=== PATIENT | female | born 1935 | race Caucasian/White ===

== ENCOUNTER → 2016-12-23 | Outpatient (CLI) | payer MEDICARE, BC ==
[~2016-12-23] MED LIST: ACETAMINOPHEN PO; ALBUTEROL17 GM INH; ASPIRIN PO; ASPIRIN81 M2 PO; ASPIRIN81 MG PO; BACTRIM DS TABL1 TA1 PO; CALCIUM + D 6001 TA1 PO; CALCIUM + D PO; CERTAGEN PO; CRESTOR PO; DIOVAN HCT 160/1 TAB PO; DOXYCYCLINE HY100 M1 PO; ELIQUIS5 MG PO; FISH OIL 1,0001 CAP PO; FISH OIL 1,2001 CAP PO; FISH OIL 1,2001 EAC5 PO; FLONASE 0.05% N16 G1 IH; LEVOTHROID25 MCG PO; LEVOXYL125 MC1 PO; LORTAB 7.5-5001 TAB PO; MACULAR PROTECT; MACULAR VITAMI1 EACH PO; METOPROLOL TAR25 MG PO; OMEGA 3-6-9 11200 M1 PO; OSTEO BI FLEX PO; SIMVASTATIN20 MG PO; SYNTHROID; SYNTHROID PO; VALSARTAN-HCTZ1 EAC1 PO; VALSARTAN-HCTZ1 EAC3 PO; VITAMIN B 6 PO; ZITHROMAX PO; [UNRECOGNIZED DRUG - OTHER]; [UNRECOGNIZED DRUG - REMARK]
--- NOTE | ~2016-12-23 | US37 ---
[facility] A Service of [facility] & [facility] RADIOLOGY TEXT RESULTS PATIENT: CHAYITO BADILLO LOCATION: [facility] : 37 UNIT #: [id number] AGE: [address]: Roderick Andres MD SEX: F ORDER DR: [id number] [facility] [address] [place], [place] [address] [id number] O MR#: [id number] Acc #: [id number] NAME: CHAYITO BADILLO : 1935 SEX: F STUDY DATE/TIME: 12/23/2016 10:31 UNIT: [facility] ROOM: STUDY DESCRIPTION: US Carotid W/Doppler Bilateral Attending Physician: Roderick Andres M.D. Ordering Physician: Roderick Andres M.D. Primary Care Physician: Paulina Posada M.D. MEDICAL IMAGING REPORT This report is preliminary unless electronic signature is present EXAM Bilateral carotid duplex, 12/23/2016 HISTORY Carotid artery atherosclerosis FINDINGS Duplex imaging of the carotid arteries was performed. The right common carotid artery is patent. Heterogeneous plaque is seen in the right carotid bulb extending into the internal and external carotid arteries. Velocity in the right common carotid is 79, internal is 213 by 49 proximally, 145 mid portion and 153 distally. External is 105 cm/sec. Right ICA/CCA ratio is 2.7. On the left side, mild plaque is seen in the left internal carotid artery. Velocity in the left common carotid is 91, internal is 96 and external is 94 cm/sec. Left ICA/CCA ratio is 1.1. Antegrade flow is seen in the right and left vertebral arteries. IMPRESSION 1. Plaque with 50% to 69% stenosis is seen in the right internal carotid artery. 2. Less than 50% stenosis is seen in the left internal carotid artery. 3. Antegrade flow is seen in the right and left vertebral arteries. Dictated by... Roderick Andres M.D. THIS IS AN ELECTRONICALLY VERIFIED REPORT Roderick Andres M.D. at 12/24/2016 4:04 PM /james [facility] A Service of [facility] & [facility] RADIOLOGY TEXT RESULTS PATIENT: CHAYITO BADILLO LOCATION: [facility] : 36 UNIT #: [id number] AGE: [address]: Roderick Andres MD SEX: F ORDER DR: TD: 12/24/2016 08:45 JOB #: [id number] MEDICAL IMAGING REPORT Page 1 of 1 COPY
== END | disposition home or self-care (01) ==
LOC: CNIV 10:04
DX: I65.23 Occlusion and stenosis of bilateral carotid arteries (principal)
CPT/HCPCS: 93880

== ENCOUNTER → 2017-01-16 | Outpatient (CLI) | payer MEDICARE, BC ==
--- NOTE | ~2017-01-16 | MY29 ---
[facility] A Service of [facility] RADIOLOGY TEXT RESULTS PATIENT: CHAYITO BADILLO LOCATION: [facility] : 36 UNIT #: [id number] AGE: [address]: ILENE SERNA MD SEX: F ORDER DR: [id number] [facility] [address] [place], [place] [address] [id number] O MR#: [id number] Acc #: [id number] NAME: CHAYITO BADILLO : 1935 SEX: F STUDY DATE/TIME: 01/16/2017 7:42 UNIT: [facility] ROOM: STUDY DESCRIPTION: [facility] SCREENING W/ CAD BILAT Attending Physician: Ilene Serna M.D. Referring Physician: Ilene Serna M.D. Ordering Physician: Ilene Serna M.D. Primary Care Physician: Ilene Serna M.D. MEDICAL IMAGING REPORT This report is preliminary unless electronic signature is present EXAM Bilateral digital screening mammogram with CAD 01/16/2017 HISTORY No personal or family history of breast cancer or current complaints. COMPARISON Bilateral screening mammogram 01/15/2016, 12/26/2014. FINDINGS CC and MLO views were obtained of each breast utilizing digital technique and reviewed with an FDA-approved CAD device. Scattered fibroglandular densities are present bilaterally. Round markers are placed over each breast denoting skin lesions. Benign appearing lymph nodes project over the left pectoral muscle, similar to the prior examination. No new or developing nodule, architectural distortion or suspicious clustered microcalcification is seen. Benign vascular calcifications and round calcifications are seen within each breast. IMPRESSION BIRADS category 2. Benign findings. Routine bilateral screening mammogram is recommended in 1 year. Patients over the age of 40 are entered into a reminder system with target due date for the next mammogram. A result letter will also be sent to the patient. BIRADS: 2 Benign finding [facility] A Service of [facility] RADIOLOGY TEXT RESULTS PATIENT: CHAYITO BADILLO LOCATION: [facility] : 37 UNIT #: [id number] AGE: [address]: ILENE SERNA MD SEX: F ORDER DR: Dictated by... Nicole Galindo M.D. THIS IS AN ELECTRONICALLY VERIFIED REPORT Nicole Galindo M.D. at 01/17/2017 1:52 PM TWILA/[email or web address] TD: 01/16/2017 10:29 JOB #: [id number] MEDICAL IMAGING REPORT Page 1 of 1 COPY
== END | disposition home or self-care (01) ==
LOC: CWCC 07:15
DX: Z12.31 Encounter for screening mammogram for malignant neoplasm of breast (principal)
CPT/HCPCS: G0202